=== PATIENT | female | born 1985 | race Caucasian/White ===

== ENCOUNTER → 2018-07-18 | Outpatient (CLI) | payer OTHER | LOC: OD 15:33 | PROVIDERS: ATTEND Nurse Practitioner Acute Care | DX: R30.0 Dysuria (principal) | CPT/HCPCS: 87086; 87088; 87186 ==

== ENCOUNTER 2019-11-19 15:38 | Outpatient (CLI) | payer OTHER ==
[2019-11-19] MEDS ORDERED: BETAMET ACET/BETAMET NA INJ 6 MG/1 ML IM ONE (15:52)
[2019-11-19] MEDS ORDERED: BETAMET ACET/BETAMET NA INJ 6 MG/1 ML ONE (16:12)
[2019-11-19] MEDS ORDERED: RINGERS SOLUTION,LACTATED 1,000 ML IV PRN (16:26)
[2019-11-19 16:42] LABS: APPEARANCE,URINE SLIGHTLY-CLOUDY; BILIRUBIN,URINE NEGATIVE (NEGATIVE); COLOR,URINE YELLOW; GLUCOSE, URINE NEGATIVE (NEGATIVE); KETONES,URINE NEGATIVE (NEGATIVE); LEUKOCYTE ESTERASE,URINE MODERATE (NEGATIVE); NITRITE,URINE NEGATIVE (NEGATIVE); PROTEIN,URINE NEGATIVE (NEGATIVE); URINE SPECIFIC GRAVITY 1.019; UROBILINOGEN,URINE NEGATIVE mg/dL (<2.0)
[2019-11-19 16:43] LABS: URINE AMPHETAMINES SCREEN NEGATIVE; URINE BARBITURATES SCREEN NEGATIVE; URINE BENZODIAZEPINES SCREEN NEGATIVE; URINE COCAINE SCREEN NEGATIVE; URINE MARIJUANA (THC) SCREEN NEGATIVE; URINE METHADONE SCREEN NEGATIVE; URINE PHENCYCLIDINE SCREEN NEGATIVE
== END 2019-11-19 18:14 | disposition home or self-care (01) ==
LOC: LC 15:38
PROVIDERS: ATTEND Obstetrics & Gynecology
DX: O47.02 False labor before 37 completed weeks of gestation, second trimester (principal); Z3A.27 27 weeks gestation of pregnancy
CPT/HCPCS: 59899; 81001; 80307; J0702; 96372

== ENCOUNTER → 2019-11-20 | Outpatient (CLI) | payer OTHER ==
[~2019-11-20] MED LIST: BETAMET ACET/BETAMET NA INJ 6 MG/1 ML IM ONE; BETAMET ACET/BETAMET NA INJ 6 MG/1 ML ONE
== END ==
LOC: LC 16:32
PROVIDERS: ATTEND Obstetrics & Gynecology
DX: Z34.82 Encounter for supervision of other normal pregnancy, second trimester (principal); Z3A.27 27 weeks gestation of pregnancy
CPT/HCPCS: 59899; 96372; J0702

== ENCOUNTER 2019-12-10 03:01 | Inpatient (IN) | payer OTHER ==
[2019-12-10] MEDS ORDERED: MAGNESIUM SULFATE 20 GM/500 ML RTUINJ IV ONE (03:09)
[2019-12-10] MEDS ORDERED: BETAMET ACET/BETAMET NA INJ 6 MG/1 ML ONE (03:09)
[2019-12-10] MEDS ORDERED: MAGNESIUM SULFATE 4 GM/100 ML RTUPB IV ONE ×2 (03:09→03:15)
[2019-12-10] MEDS ORDERED: BETAMET ACET/BETAMET NA INJ 6 MG/1 ML IM ONE (03:10)
[2019-12-10] MEDS ORDERED: MAGNESIUM SULFATE 20 GM/500 ML RTUINJ IV PRN (03:15)
[2019-12-10] MEDS ORDERED: AMPICILLIN SOD INJ 2 GM VIAL IV ONE (03:19)
[2019-12-10] MEDS ORDERED: AMPICILLIN SOD INJ 2 GM VIAL ONE (03:34)
[2019-12-10] MEDS ORDERED: AZITHROMYCIN INJ 500 MG VIAL IV ONE ×3 (03:34→05:52)
[2019-12-10] MEDS ORDERED: AMPICILLIN SOD INJ 2 GM VIAL IV PRN (03:35)
[2019-12-10] MEDS ORDERED: AMPICILLIN SODIUM 2 GM in NORMAL SALINE 100 ML IV ONE (03:45)
[2019-12-10] MEDS ORDERED: AZITHROMYCIN 500 MG in DEXTROSE 5%-WATER 250 ML IV ONE ×2 (04:00→07:00)
--- NOTE | 2019-12-10 04:33 | PDOC TRANSFER SUMMARY ---
General Admission Date: 12/10/19 Transfer Date: 12/10/19 Accepting Facility: [facility] Accepting Physician: Dr Perez Resuscitation Status: Full Code - Transfer Diagnosis (1) Twin gestation in third trimester Is this a current diagnosis for this admission?: Yes (2) Monochorionic diamniotic twin gestation Is this a current diagnosis for this admission?: Yes (3) Premature rupture of membranes Is this a current diagnosis for this admission?: Yes (4) Velamentous insertion of umbilical cord Is this a current diagnosis for this admission?: Yes (5) Prolonged latent phase of labor Is this a current diagnosis for this admission?: Yes - Transfer Medications Home Medications: Aspirin [Aspirin 81 mg Chewable Tablet] 1 tab PO BID 11/19/19 95/Iron Fum/Folic/Dha [ + Dha Combo Pack] 1 each PO DAILY 11/19/19 Transfer Medications: Current Medications Ampicillin Sodium (Omnipen Inj 2 Gm Vial) 2 gm IV ASDIR PRN Stop: 12/10/19 09:00 Magnesium Sulfate (Magnesium Sulfate Rtu 20 Gm/500 Ml Premix) 20 gm in 500 mls @ 50 mls/hr IV CONTINUOUS PRN; Protocol PRN Reason: THIS MED IS NOT "PRN" Stop: 01/09/20 03:14 Azithromycin 500 mg/ Dextrose 250 mls @ 250 mls/hr IV DAILY EDY Stop: 12/18/19 09:59 Azithromycin 500 mg/ Dextrose 250 mls @ 250 mls/hr IV NOW ONE Stop: 12/10/19 04:59 Ampicillin Sodium 2 gm/ Sodium (Chloride) 100 mls @ 200 mls/hr IV NOW ONE Stop: 12/10/19 04:14 - Allergies Allergies/Adverse Reactions: cefaclor [From Ceclor] Allergy (Severe, Verified 11/19/19 15:55) Anaphylaxis - Diet/Activity Discharge Diet: Clear Liquids Discharge Activity: Bedrest Hospital Course Hospital Course: patient presented to L&d with c/o premature rupture of membranes and irregular contractions. on exam her speculaum exam reveal gross amniotic fluid present in the vagina and a visible cervix dialation, thefore I did a digital exam to assess the amount of dilation and found it to be 4/75/-1 with vertex presentation and palpable bag on this twin. (suspect possibly the loss of fluid may be from a higher leak or from twin B) Immediaely began tocolysis with magnesium sulfate and antibiotic of Ampicillin and Zithromax started for latency. She had previously had full ACS protcol on Nov 20 therefore I have initiated a single rescue dose and contacted [facility] to start the transfer process with hopefully a flight. Transfer accepted by Dr. Bartlett at [facility]. We were notified after acceptance that the weather in [place] is poor so flight is not possible. They are sending an ambulance now to transport the patient. Physical Exam Vital Signs: Intake & Output 12/08/19 12/09/19 12/10/19 06:59 06:59 06:59 Weight 82.9 kg General appearance: PRESENT: no acute distress, cooperative Gentrourinary exam: PRESENT: other - gross clear amniotic fluid pouring from vagina. Cervix visually open therefore digital exam performed with above exam noted. Plan Discharge Plan: plan for transport fern to [facility] on tocolysis and antibiotic with rescue dose of steroids completed. Thank you Dr. Bartlett for accepting and helping in the care of this patient. Time Spent: Less than 30 Minutes
[2019-12-10 04:39] LABS: APPEARANCE,URINE CLOUDY; BILIRUBIN,URINE NEGATIVE (NEGATIVE); COLOR,URINE YELLOW; GLUCOSE, URINE 50 mg/dL (NEGATIVE); KETONES,URINE NEGATIVE (NEGATIVE); LEUKOCYTE ESTERASE,URINE NEGATIVE (NEGATIVE); NITRITE,URINE NEGATIVE (NEGATIVE); PROTEIN,URINE 100 mg/dL (NEGATIVE); URINE SPECIFIC GRAVITY 1.005; UROBILINOGEN,URINE NEGATIVE mg/dL (<2.0)
[2019-12-10 04:43] LABS: URINE AMPHETAMINES SCREEN NEGATIVE; URINE BARBITURATES SCREEN NEGATIVE; URINE BENZODIAZEPINES SCREEN NEGATIVE; URINE COCAINE SCREEN NEGATIVE; URINE MARIJUANA (THC) SCREEN NEGATIVE; URINE METHADONE SCREEN NEGATIVE; URINE PHENCYCLIDINE SCREEN NEGATIVE
[2019-12-10] MEDS ORDERED: RINGERS SOLUTION,LACTATED 1,000 ML IV PRN ×2 (05:25→07:11)
[2019-12-10] MEDS ORDERED: RINGERS SOLUTION,LACTATED 1,000 ML IV ONE (05:25)
[2019-12-10] MEDS ORDERED: AMPICILLIN SOD INJ 1 GM VIAL ONE (05:45)
[2019-12-10] MEDS ORDERED: CITRIC ACID/SODIUM CITRATE ORAL SOLN 15 ML UDCUP ONE (05:46)
--- NOTE | 2019-12-10 05:47 | Admission Physical ---
Datetime Report Generated by CPN: 12/10/2019 05:46 CURRENT ADMISSION Chief Complaint: Uterine Contractions; Suspected Ruptured Membranes Indication for Induction: Not Applicable Admit Impression : , Intrauterine ; Active Labor Admit Impression- Other: Di/Luquillo twins, velamatous cord insertion of twin b. Admit Plan: Admit to Unit; Initiate Section Protocol Admit Plan- Other: patient counseled and she does desire a c/section. Counseled that she could attempt a vaginal but she is more comfortable with the plan for c/section so we will proceed with that. She declines tubal ligation ALLERGIES Medication Allergies: Yes Medication Allergies: cefaclor/SV/Anaphylaxis (11/19/2019) Latex: No Latex Allergies Food Allergies: none Environmental Allergies: none OBSTETRICAL HISTORY EDC: 02/16/2020 00:00 : 2 Para: 0 Term: 0 : 0 SAB: 1 IAB: 0 Livin Gestational Diabetes: No Rh Sensitization: No Incompetent Cervix: No ROSEANN: No Infertility: No ART Treatment: No Uterine Anomaly: No IUGR: No Hx Previous C/S: No Macrosomia: No Hx Loss/Stillborn: No PIH: No Hx : No Placenta Previa/Abruption: No Depression/PP Depression: No PTL/PROM: No Post Hemorrhage: No Obstetrical History Comments: G1- SAB in 2019 G2- Current with twins SEE RECORDS Alcohol: No Marijuana : No Cocaine: No Other Illicit Drugs: No Cigarettes: Former Smoker. [id number] MEDICAL HISTORY Diabetes: No Blood Transfusion: No Pulmonary Disease (Asthma, TB): No Breast Disease: No Hypertension: No Wet Pour Supervisor Surgery: No Heart Disease: No Hosp/Surgery: Yes Autoimmune Disorder: No Anesthetic Complications: No Kidney Disease: No Abnormal Pap Smear: Yes Neuro/Epilepsy: No Psychiatric Disorders: No Other Medical Diseases: No Hepatitis/Liver Disease: No Significant Family History: No Varicosities/Phlebitis: No Trauma/Violence : No Thyroid Dysfunction: No Medical History Comments: wisdom teeth in 2017 and bunion in 2014. Leep in 2010 INFECTIOUS HISTORY Gonorrhea: No Chlamydia: No Tuberculosis: No Syphilis: No Hepatitis: No HIV/AIDS Exposure: No Rash or Viral Illness: No HPV: No PHYSICAL EXAM General: Normal HEENT: Normal Neurologic: Normal Thyroid: Normal Heart: Normal Lungs: Normal Breast: Normal Back: Normal Abdomen: Normal Genitourinary Exam: Normal Extremities: Normal DTRs: Normal Pelvic Type: Adequate Vital Signs: Reviewed; Within Normal Limits VAGINAL EXAM Dilatation: 8 Effacement: 90 Station: -1 MEMBRANES Pooling: Positive Membranes: Ruptured Amniotic Fluid Color: Clear FETUS A EGA: 30.2 Monitoring: External US FHR- Baseline: 140 Variability: Moderate 6-25bpm Accelerations: 10X10 Decelerations: None FHR Category: Category I Estimated Weight (gm): 2000 Presentation: Vertex FETUS B Monitoring: External US; Auscultation Variability: Moderate 6-25bpm Accelerations: 10X10 Decelerations: None FHR Category: Category I Estimated Weight (gm): 2000 Presentation: Transverse PLANS FOR LABOR AND DELIVERY Labor and Delivery: None Pain Management: Spinal Feeding Preference: Breast Benefit of Breast Feed Discussed: Yes Circumcision: N/A INFORMED CONSENT Signature: with User ID: [email or web address]
[2019-12-10] MEDS ORDERED: EPHEDRINE SULFATE INJ 50 MG/1 ML AMPULE ONE (05:51)
[2019-12-10] MEDS ORDERED: KETOROLAC TROMETHAMINE INJ/PF 30 MG/1 ML SDV ONE (05:51)
[2019-12-10] MEDS ORDERED: AMPICILLIN SOD INJ 1 GM VIAL IV ONE (05:51)
[2019-12-10] MEDS ORDERED: MIDAZOLAM 2 MG/2 ML INJ ONE (05:51)
[2019-12-10] MEDS ORDERED: ACETAMINOPHEN 1,000 MG/100 ML RTUPB IV ONE (05:51)
[2019-12-10] MEDS ORDERED: OXYTOCIN 10 UNIT/ML VIAL ONE (05:51)
[2019-12-10] MEDS ORDERED: FENTANYL CITRATE INJ/PF 100 MCG/2 ML AMPUL ONE (05:51)
[2019-12-10] MEDS ORDERED: OXYTOCIN/0.9 % SODIUM CHLORIDE 30 UNIT/500 ML RTUINJ ONE (05:51)
[2019-12-10] MEDS ORDERED: ONDANSETRON HCL INJ/PF 4 MG/2 ML SDV ONE (05:51)
[2019-12-10] MEDS ORDERED: MISOPROSTOL 0.2 MG TABLET ONE (05:54)
[2019-12-10] MEDS ORDERED: METHYLERGONOVINE MALEATE INJ/PF 0.2 MG/1 ML AMPULE ONE (05:54)
[2019-12-10 06:16] LABS: ABSOLUTE MONOCYTES (AUTO) 0.4 10^3/uL (0.1-1.4); ABSOLUTE NEUT (AUTO) 14.1 10^3/uL (1.7-8.2); BASOPHILS % (AUTO) 0.1 % (0-2); EOSINOPHILS % (AUTO) 0.2 % (0-6); HEMATOCRIT 31.5 % (36.0-47.0); HEMOGLOBIN 10.9 g/dL (12.0-15.5); LYMPHOCYTES % (AUTO) 6.7 % (13-45); MEAN CORPUSCULAR HGB CONC 34.5 g/dL (32.0-36.0); MEAN CORPUSCULAR VOLUME 87 fl (80-97); MONOCYTES % (AUTO) 2.3 % (3-13); PLATELET COUNT 295 10^3/uL (150-450); RED BLOOD COUNT 3.62 10^6/uL (3.72-5.28); SEGMENTED NEUTROPHILS % (AUTO) 90.7 % (42-78); TOTAL CELLS COUNTED % (AUTO) 100 %; WHITE BLOOD COUNT 15.6 10^3/uL (4.0-10.5)
[2019-12-10] MEDS ORDERED: AMPICILLIN SODIUM 1 GM in NORMAL SALINE 50 ML IV ONE (06:45)
[2019-12-10] MEDS ORDERED: MEASLES,MUMPS&RUBELLA VACC/PF 0.5 ML VIAL SUBCUT PRN (07:11)
[2019-12-10] MEDS ORDERED: MORPHINE SULFATE 10 MG/ML INJ IV PRN (07:11)
[2019-12-10] MEDS ORDERED: DIPH/PERTUSS(ACELL)/TETANUS VAC/PF 0.5 ML SYR (>=10YO) IM PRN (07:11)
[2019-12-10] MEDS ORDERED: ACETAMINOPHEN 100 ML IV PRN (07:11)
[2019-12-10] MEDS ORDERED: SIMETHICONE 80 MG TAB.CHEW PO PRN (07:11)
[2019-12-10] MEDS ORDERED: PROMETHAZINE HCL INJ 25 MG/1 ML VIAL IV PRN (07:11)
[2019-12-10] MEDS ORDERED: OXYCODONE-ACETAMINOPHEN 5-325 MG TABLET PO PRN (07:11)
[2019-12-10] MEDS ORDERED: ACETAMINOPHEN 325 MG TABLET PO PRN (07:11)
[2019-12-10] MEDS ORDERED: OXYTOCIN/0.9 % SODIUM CHLORIDE 30 UNIT/500 ML RTUINJ IV PRN (07:11)
--- NOTE | 2019-12-10 07:18 | Operative Report ---
Operative Report DATE OF SURGERY: 12/10/19 PREOPERATIVE DIAGNOSIS: IUP at 30 weeks and 2 days, mono di-twin gestation, pre mature rupture of membranes, active labor POSTOPERATIVE DIAGNOSIS: Same OPERATION: Primary low transverse hysterotomy section SURGEON: ANJALI KHAN ANESTHESIA: Spinal TISSUE REMOVED OR ALTERED: Placentas COMPLICATIONS: None ESTIMATED BLOOD LOSS: 850 cc INTRAOPERATIVE FINDINGS: female cephalic presentation baby A, female infant transverse presentation baby B, normal uterus tubes and ovaries PROCEDURE: PROCEDURE IN DETAIL: The patient was taken to the operating room, prepared and draped in a normal sterile fashion in a supine position with a leftward tilt. A transverse skin incision was made with a scalpel and carried through to the underlying layer of fascia with the same scalpel. The fascia was excised in the midline and extended laterally with Deena. The fascia was then dissected from the rectus muscle sharply with Deena and the rectus muscle was divided and the peritoneal cavity was entered sharply with the same Metzenbaum. With good visualization of the bladder and the uterus the bladder blade was inserted. The hysterotomy was nicked with a scalpel and extended laterally with surgeon finger fraction. The was then delivered atraumatically. The nose and mouth were suctioned with a suction bulb, the cord was clamped and cut and handed off to awaiting pediatricians. Cord blood was collected. Amniotomy was performed on baby B's amniotic sac . The feet were grasped and the baby was converted from transverse to footling breech . The nose and mouth were suctioned with a suction bulb cord was clamped and cut and the was heading off to the other waiting pediatricians. the placentas were removed manually. The uterus was exteriorized and cleared of clots and debris. The hysterotomy was closed with 0 Monocryl in a running, locked fashion. A second layer of the same suture was used to imbricate to ensure hemostasis. The uterus was returned to the abdomen and peritoneal cavity was cleared of clots and debris. The rectus muscle and peritoneum were repaired with mattress stitch of 2-0 Chromic. The fascia was closed with 0-Vicryl. The subcutaneous layer was closed with plain catgut and the skin was closed with 4-0 Vicryl. The patient tolerated the procedure well. Sponge, lap, and needle counts correct x2 and the patient was taken to recovery in stable condition.
[2019-12-10] MEDS ORDERED: MEPERIDINE HCL/PF INJ 25 MG/1 ML DISP.SYRIN ONE (07:50)
[2019-12-10] MEDS ORDERED: DIPHENHYDRAMINE HCL 50 MG/ML VIAL ONE (08:09)
[2019-12-10] MEDS ORDERED: PRENATAL VITAMIN W DHA CAPSULE PO SCH (10:00)
--- NOTE | 2019-12-10 10:03 | Birth Certificate Data ---
Cert Data Datetime Report Generated by CPN: 12/10/2019 10:02 CERTIFICATE DATA 48b. Now Livin (11/19/2019 15:47:May GLENN Servin) RISK FACTORS IN THIS 49a. Diabetes: No (11/19/2019 15:47:Carlotta Coffey RN) 49b. Hypertension: No (11/19/2019 15:47:Carlotta Coffey RN) 49c. Previous Births: 0 (11/19/2019 15:47:Raisa Servin RN) 49d. Stillborns: No (11/19/2019 15:47:Carlotta Coffey RN) 49d. IUGR: No (11/19/2019 15:47:Carlotta Coffey RN) 49e. Infertility Treatment: No (11/19/2019 15:47:Carlotta Coffey RN) Mother's Height 50b. Height Inches: 58 (12/10/2019 09:29:QS system process) Mother's Weight 51a. Pre- Weight (lbs): 135 (11/19/2019 15:47:Carlotta Coffey RN) 51b. Weight at Delivery (lbs): 183 (12/10/2019 09:29:QS system process) Infections Present/Treated 53a. Gonorrhea: No (11/19/2019 15:47:Carlotta Coffey RN) Results this Hospital Visit : Negative (11/19/2019 15:47:Carlotta Coffey RN) 53b. Syphilis: No (11/19/2019 15:47:Carlotta Coffey RN) Results this Hospital Visit: NONREACTIVE (12/10/2019 06:08:QS system process) 53c. Chlamydia: No (11/19/2019 15:47:Carlotta oCffey RN) Results this Hospital Visit: Negative (11/19/2019 15:47:Carlotta Coffey RN) 53d. Hepatitis B: No (11/19/2019 15:47:Carlotta Coffey RN) Results this Hospital Visit: Negative (11/19/2019 15:47:Carlotta Coffey RN) 53e. Hepatitis C: Negative (11/19/2019 15:47:Carlotta Coffey RN) 53h. Mother Tested for HBsAG: Yes (11/19/2019 15:47:Carlotta Coffey RN) 53i. Date Tested: 07/16/2019 00:00 (11/19/2019 15:47:Carlotta Coffey RN) 53j. Test Result: Negative (11/19/2019 15:47:Carlotta Coffey RN) Cigarette Smoking Cigarette Smoking: Former Smoker. [id number] (11/19/2019 15:47:Carlotta Coffey RN) 55a. 3 Months Before Preg - Ci (11/19/2019 15:47:Carlotta Coffey RN) 55a. Packs: 0 (11/19/2019 15:47:Carlotta Coffey RN) 55b. 1st Trimester of Preg- Ci (11/19/2019 15:47:Carlotta Coffey RN) 55b. Packs: 0 (11/19/2019 15:47:Carlotta Coffey RN) 55c. 2nd Trimester of Preg- Ci (11/19/2019 15:47:Carlotta Coffey RN) 55c. Packs: 0 (11/19/2019 15:47:Carlotta Coffey RN) 55d. 3rd Trimester of Preg- Ci (11/19/2019 15:47:Carlotta Coffey RN) 55d. Packs: 0 (11/19/2019 15:47:Carlotta Coffey RN) Onset of Labor 56a. PROM >12 Hrs: 4.70 (12/10/2019 05:30:QS system process) 56b. Precipitous Labor <3 Hrs: 4 (11/19/2019 15:47:QS system process) 56c. Prolonged Labor > 20 Hrs: 4 (11/19/2019 15:47:QS system process) 57a. Induction of Labor: N/A (11/19/2019 15:47:Almaz Johns RN) 57c. Non-Vertex Presentation A: Vertex (11/19/2019 15:47:Almaz Johns RN) 57d. Steroids - Lung Mat: Full Course (11/19/2019 15:47:Almaz Johns RN) 57d. Steroids - Lung Mat: Celestone 12mg IM - Dose 1 (12/10/2019 03:30:Carlotta Coffey RN) 57d. Steroids - Lung Mat: Not Applicable (11/19/2019 15:47:Almaz Johns RN) 57f. Mat Ch[place] or Temp >100.4: 97.6 (11/19/2019 15:47:Carlotta Coffey RN) 57g. Moderate/Heavy Meconium: Clear (12/10/2019 05:30:Carlotta Coffey RN) 57h. Intolerance of Labor: Multiple Gestation (11/19/2019 15:47:Almaz Johns RN) 57i. Epidural/Spinal Anesthesia: None (11/19/2019 15:47:Almaz Johns RN) Method of Delivery 58a. Forceps - Unsuccessful A: N/A (11/19/2019 15:47:Almaz Johns RN) 58a. Forceps - Unsuccessful B: N/A (11/19/2019 15:47:Almaz Johns RN) 58b. Vacuum - Unsuccessful A: N/A (11/19/2019 15:47:Almaz Jonhs RN) 58b. Vacuum - Unsuccessful B : N/A (11/19/2019 15:47:Almaz Johns RN) 58c. Presentation at 58c. Presentation at - A : Vertex (11/19/2019 15:47:Almaz Johns RN) 58c. Presentation at - A : N/A (11/19/2019 15:47:Almaz Johns RN) 58c. Presentation at - A : Cephalic (11/19/2019 15:47:Almaz Johns RN) 58c. Presentation at - B : Rufus (11/19/2019 15:47:Almaz Johns RN) 58c. Presentation at - B: Breech (11/19/2019 15:47:Almaz Johns RN) Final Route and Method of Del 58d. Baby A Route/Delivery: (11/19/2019 15:47:Almaz Johns RN) 58d. Baby B Route/Delivery: (11/19/2019 15:47:Almaz Johns RN) 58e. Trial of Labor Attempted: No (11/19/2019 15:47:Almaz Johns RN) 58e. Trial of Labor Attempted A: N/A (11/19/2019 15:47:Almaz Johns RN) 58e. Trial of Labor Attempted B: N/A (11/19/2019 15:47:Almaz Johns RN) Maternal Morbidity 59b. 3rd or 4th Degree Lacs: None (11/19/2019 15:47:Almaz Johns RN) Birthweight Baby A: 1367 (11/19/2019 15:47:Ana Noland RN) 60a. Pounds : 3 (11/19/2019 15:47:QS system process) 60b. Ounces: 0 (11/19/2019 15:47:QS system process) Birthweight Baby B 60a. Pounds: 2 (11/19/2019 15:47:QS system process) 60b. Ounces: 12 (11/19/2019 15:47:QS system process) 61. GA at Delivery Baby A: 30.2 (11/19/2019 15:47:Almaz Johns RN) : - <34 Weeks (11/19/2019 15:47:QS system process) Baby B: 30.2 (11/19/2019 15:47:Almaz Johns RN) : - <34 Weeks (11/19/2019 15:47:QS system process) 62a. 5 Minute Baby A: 9 (11/19/2019 15:47:QS system process) Baby B: 9 (11/19/2019 15:47:QS system process)
--- NOTE | 2019-12-10 10:03 | Delivery Summary ---
Del Sum A-C Datetime Report Generated by CPN: 12/10/2019 10:02 DELIVERY PERSONNEL DELIVERY PERSONNEL: [id number] Delivery Doctor:: Ruba Stevens MD INTEGRATED MARKETING SPECIALIST:: Jose Leslie CRNA Balance Staff Inspector:: Carlotta Coffey RN Neonatal Nurse Practitioner:: Juan GarciaDULCE MARIA delgado Ladies' Locker Room Attendant/BOTTLE HOP: Yamileth Vargas, Ladies' Locker Room Attendant/BOTTLE HOP: Mireille Rey, ST MATERNAL INFORMATION Delivery Anesthesia: Spinal Medications After Delivery: Pitocin 30 Units in 500ml NS/D5W Delivery QBL: 1010 Maternal Complications: Premature Rupture of Membranes LABOR SUMMARY EDC: 02/16/2020 00:00 No. Babies in Womb: 2 Attempted: No Labor Anesthesia: None LABOR INFORMATION Reason for Induction: Not Applicable Onset of Labor: 12/10/2019 02:00 Oxytocin: N/A Group B Beta Strep: Unknown Name of Antibiotic Given: n/a Steroids Given: Full Course Reason Steroids Not Administered: Not Applicable MEMBRANES Membranes Rupture Method: Spontaneous Rupture of Membranes: 12/10/2019 02:00 Length of Rupture (hr): 4.70 Amniotic Fluid Color: Clear Amniotic Fluid Amount: Large Amniotic Fluid Odor: Normal STAGES OF LABOR Stage 3 hr: 0 Stage 3 min: 3 Total Time in Labor hr: 4 Total Time in Labor min: 45 VAGINAL DELIVERY Episiotomy: None Laceration #1: None Laceration Extension #1: N/A Laceration Repair: Not Applicable Sponge Count Correct: N/A Sharps Count Correct: N/A CSECTION DELIVERY Primary Indication: Multiple Gestation CSection Urgency: Non-Scheduled CSection Incidence: Primary Labor: Labor Elective: Elective CSection Incision: Lower Uterine Transverse BABY A INFORMATION Delivery Date/Time: 12/10/2019 06:42 Method of Delivery: Nurse Controlled Delivery: No Born in Route : No : N/A Forceps: N/A Vacuum Extraction: N/A Shoulder Dystocia : No PRESENTATION/POSITION BABY A Presentation: Cephalic Cephalic Presentation: Vertex Breech Presentation: N/A PLACENTA INFORMATION BABY A Placenta Delivery Time : 12/10/2019 06:45 Placenta Method of Delivery: Manual Removal Placenta Status: Delivered SCORES BABY A Heart Rate 1 min: >100 bpm Resp Effort 1 min: Good Cry Reflex Irritability 1 min: Cough or Sneeze or Pulls Away Muscle Tone 1 min: Active Motion Color 1 min: Blue/Pale Resuscitation Effort 1 min: Tactile Stimulation; Oxygen; PPV/NCPAP SCORE 1 MIN: 8 Heart Rate 5 min: >100 bpm Resp Effort 5 min: Good Cry Reflex Irritability 5 min: Cough or Sneeze or Pulls Away Muscle Tone 5 min: Active Motion Color 5 min: Body [place], Extremities Blue Resuscitation Effort 5 min: Tactile Stimulation; Oxygen; PPV/NCPAP SCORE 5 MIN: 9 INFANT INFORMATION BABY A Gestational Age at Delivery: 30.2 Gestational Status: - <34 Weeks Outcome : Liveborn Condition : Stable Sex: Female IDENTIFICATION BABY A Infant Verification Date/Time: 12/10/2019 07:20 ID Band Number: [id number] Mother's Name Verified: Yes RN Verifying Infant: Nadine Coffey, RN Additional Verifying Personnel: T Adolfo, RN WEIGHT/LENGTH BABY A Infant Birthweight (gm): 1367 Weight (lb): 3 Infant Weight (oz): 0 Infant Length (in): 16.50 Infant Length (cm): 41.91 CORD INFORMATION BABY A No. Cord Vessels: 3 Cord Blood Taken: Yes-For Eval (Mom's Blood Type - or O+) Infant Suction: Mouth; Nose BABY B INFORMATION Infant Delivery Date/Time: 12/10/2019 06:43 Method of Delivery : Nurse Controlled Delivery: No Born in Route : No : N/A Forceps : N/A Vacuum Extraction: N/A Shoulder Dystocia : No SHOULDER DYSTOCIA BABY B Delivery Date/Time: 12/10/2019 06:43 PRESENTATION/POSITION BABY B Presentation : Breech Breech Position: Rufus ROM/PLACENTA INFO BABY B Rupture of Membranes: 12/10/2019 06:43 Length of Rupture (hr): 0.00 Placenta Delivery Time : 12/10/2019 06:45 Placenta Method of Delivery: Manual Removal Placental Status : Delivered SCORES BABY B Heart Rate 1 min: >100 bpm Resp Effort 1 min: Good Cry Reflex Irritability 1 min: Cough or Sneeze or Pulls Away Muscle Tone 1 min: Active Motion Color 1 min: Body [place], Extremities Blue SCORE 1 MIN: 9 Heart Rate 5 min: >100 bpm Resp Effort 5 min: Good Cry Reflex Irritability 5 min: Cough or Sneeze or Pulls Away Muscle Tone 5 min: Active Motion Color 5 min: Body [place], Extremities Blue SCORE 5 MIN: 9 INFANT INFORMATION BABY B Gestational Age at Delivery: 30.2 Gestational Status : - <34 Weeks Infant Outcome : Liveborn Infant Condition : Stable Sex : Female IDENTIFICATION BABY B Verification Date/Time: 12/10/2019 07:20 ID Band Number : [id number] Mother's Name Verified: Yes RN Verifying : K Alexx, RN Additional Verifying Personnel: T Adolfo, RN WEIGHT/LENGTH BABY B Birthweight (gm): 1238 Weight (lb) : 2 Weight (oz): 12 Infant Length (in): 14.00 Infant Length (cm): 35.56 CORD INFORMATION BABY B No. Cord Vessels : 3 Nuchal Cord : Around Neck x1, Tight Cord Blood Taken : Yes-For Eval (Mom's Blood Type -)
[2019-12-10] MEDS: OXYCODONE-ACETAMINOPHEN 5-325 MG TABLET PO PRN ×2 (10:05→15:16)
[2019-12-10] MEDS: DOCUSATE SODIUM 100 MG CAPSULE PO SCH ×2 (10:11→18:01)
[2019-12-10] MEDS: KETOROLAC TROMETHAMINE INJ/PF 30 MG/1 ML SDV IV SCH ×2 (13:24→22:03)
[2019-12-10] MEDS: IBUPROFEN 800 MG TABLET PO SCH (20:57)
[2019-12-11] MEDS: IBUPROFEN 800 MG TABLET PO SCH ×2 (06:55→06:56)
[2019-12-11 07:30] LABS: HEMATOCRIT 25.6 % (36.0-47.0); MEAN CORPUSCULAR HEMOGLOBIN 30.8 pg (27.0-33.4); MEAN CORPUSCULAR HGB CONC 35.3 g/dL (32.0-36.0); MEAN CORPUSCULAR VOLUME 87 fl (80-97); PLATELET COUNT 300 10^3/uL (150-450); RED BLOOD COUNT 2.93 10^6/uL (3.72-5.28); RED CELL DISTRIBUTION WIDTH 13.3 % (11.5-14.0); WHITE BLOOD COUNT 13.1 10^3/uL (4.0-10.5)
--- NOTE | 2019-12-11 09:51 | PDOC DISCHARGE SUMMARY ---
Impression - Admit/DC Date/PCP Admission Date/Primary Care Provider: 12/10/19 05:18 Discharge Date: 12/11/19 - Discharge Diagnosis (1) delivery Is this a current diagnosis for this admission?: Yes (2) Monochorionic diamniotic twin gestation Is this a current diagnosis for this admission?: Yes (3) Premature rupture of membranes Is this a current diagnosis for this admission?: Yes (4) Prolonged latent phase of labor Is this a current diagnosis for this admission?: Yes (5) Twin gestation in third trimester Is this a current diagnosis for this admission?: Yes (6) Velamentous insertion of umbilical cord Is this a current diagnosis for this admission?: Yes (7) Active labor Is this a current diagnosis for this admission?: Yes - Additional Information Resuscitation Status: Full Code Discharge Diet: Regular Discharge Activity: Balance Activity w/Rest, No Lifting Over 10 Pounds, No Lifting/Push/Pulling, Pelvic Rest, No tub bath Prescriptions: Oxycodone HCl/Acetaminophen [Percocet 5-325 mg Tablet] 1 tab PO Q4HP PRN #30 t ablet PRN Reason: For Pain Scale 3-5 Ibuprofen [Motrin 800 mg Tablet] 800 mg PO Q8HP PRN #60 tablet PRN Reason: Home Medications: 95/Iron Fum/Folic/Dha [ + Dha Combo Pack] 1 each PO DAILY 11/19/19 Ibuprofen [Motrin 800 mg Tablet] 800 mg PO Q8HP PRN #60 tablet 12/11/19 Oxycodone HCl/Acetaminophen [Percocet 5-325 mg Tablet] 1 tab PO Q4HP PRN #30 tablet 12/11/19 HPI Gestational Age: 30.2 Reason(s) for Admission: Onset of Labor, PROM, Labor, Twins Procedures: NST, Management of Obstetric Complications Intrapartum Procedure(s): : Low Cervical, Transverse Hospital Course 59. Maternal Morbidity (serious complications experinced by the mother associated with labor and delivery: None of the above Results Laboratory Results: WBC 13.1 10^3/uL (4.0-10.5) H 12/11/19 06:59 RBC 2.93 10^6/uL (3.72-5.28) L 12/11/19 06:59 Hgb 9.0 g/dL (12.0-15.5) L 12/11/19 06:59 Hct 25.6 % (36.0-47.0) L 12/11/19 06:59 MCV 87 fl (80-97) 12/11/19 06:59 MCH 30.8 pg (27.0-33.4) 12/11/19 06:59 MCHC 35.3 g/dL (32.0-36.0) 12/11/19 06:59 RDW 13.3 % (11.5-14.0) 12/11/19 06:59 Plt Count 300 10^3/uL (150-450) 12/11/19 06:59 Lymph % (Auto) 6.7 % (13-45) L 12/10/19 06:08 [place] % (Auto) 2.3 % (3-13) L 12/10/19 06:08 Eos % (Auto) 0.2 % (0-6) 12/10/19 06:08 Baso % (Auto) 0.1 % (0-2) 12/10/19 06:08 Absolute Neuts (auto) 14.1 10^3/uL (1.7-8.2) H 12/10/19 06:08 Absolute Lymphs (auto) 1.0 10^3/uL (0.5-4.7) 12/10/19 06:08 Absolute Monos (auto) 0.4 10^3/uL (0.1-1.4) 12/10/19 06:08 Absolute Eos (auto) 0.0 10^3/uL (0.0-0.6) 12/10/19 06:08 Absolute Basos (auto) 0.0 10^3/uL (0.0-0.2) 12/10/19 06:08 Seg Neutrophils % 90.7 % (42-78) H 12/10/19 06:08 Urine Color YELLOW 12/10/19 03:10 Urine Appearance CLOUDY 12/10/19 03:10 Urine pH 8.0 (5.0-9.0) 12/10/19 03:10 Ur Specific [place] 1.005 12/10/19 03:10 Urine Protein 100 mg/dL (NEGATIVE) H 12/10/19 03:10 Urine Glucose (UA) 50 mg/dL (NEGATIVE) H 12/10/19 03:10 Urine Ketones NEGATIVE mg/dL (NEGATIVE) 12/10/19 03:10 Urine Blood MODERATE (NEGATIVE) H 12/10/19 03:10 Urine Nitrite NEGATIVE (NEGATIVE) 12/10/19 03:10 Urine Bilirubin NEGATIVE (NEGATIVE) 12/10/19 03:10 Urine Urobilinogen NEGATIVE mg/dL (<2.0) 12/10/19 03:10 Ur Leukocyte Esterase NEGATIVE (NEGATIVE) 12/10/19 03:10 Urine WBC (Auto) 8 /HPF 12/10/19 03:10 Urine RBC (Auto) 9 /HPF 12/10/19 03:10 Urine Bacteria (Auto) TRACE /HPF 12/10/19 03:10 Squamous Epi Cells Auto 29 /HPF 12/10/19 03:10 Urine Yeast (Budding) PRESENT /HPF 12/10/19 03:10 Urine Ascorbic Acid NEGATIVE (NEGATIVE) 12/10/19 03:10 Urine Opiates Screen NEGATIVE 12/10/19 03:10 Urine Methadone Screen NEGATIVE 12/10/19 03:10 Ur Barbiturates Screen NEGATIVE 12/10/19 03:10 Ur Phencyclidine Scrn NEGATIVE 12/10/19 03:10 Ur Amphetamines Screen NEGATIVE 12/10/19 03:10 U Benzodiazepines Scrn NEGATIVE 12/10/19 03:10 Urine Cocaine Screen NEGATIVE 12/10/19 03:10 U Marijuana (THC) Screen NEGATIVE 12/10/19 03:10 RPR NONREACTIVE (NONREACTIVE) 12/10/19 06:08 COVID-19 Source See comment 12/10/19 07:34 COVID-19 (ESTELLA) Not Detected (Not Detect) 12/10/19 07:34 Blood Type O POSITIVE 12/10/19 06:08 Antibody Screen NEGATIVE 12/10/19 06:08 Plan Plan of Treatment: f/u at [facility] 1 wk for incision check Time Spent: Less than 30 Minutes
[2019-12-11] MEDS ORDERED: AZITHROMYCIN 500 MG in DEXTROSE 5%-WATER 250 ML IV SCH (10:00)
[2019-12-11 10:01] VITALS: BP 120/68
--- NOTE | 2019-12-11 10:03 | PDOC PROGRESS REPORT ---
Subjective-OB Progress Note for:: 12/11/19 Subjective: Pt is doing well, she would like to be discharged so that she can go see her babies in [place]. She reports reg diet, voiding w/o difficulty, +flatus and light bleeding. She is ambulatory and without concerns. Would like rx for breast pump. Physical Exam (OB) Vital Signs: Temp Pulse Resp BP Pulse Ox 97.9 F 71 17 111/58 L 100 12/11/19 08:44 12/11/19 07:51 12/11/19 07:51 12/11/19 07:51 12/11/19 07:51 Intake & Output 12/10/19 12/11/19 12/12/19 06:59 06:59 06:59 Intake Total 936 120 Output Total 2850 Balance -1914 120 Weight 82.9 kg - Dressing Removed: No Incision: Dressing Closure Type: Surgical Glue Note: occlusive OPSITE - Maternal Morbidity 59. Maternal Morbidity (serious complications experinced by the mother associated with labor and delivery: None of the above - Lochia Lochia Amount: Scant < 10 ml Lochia Color: Rubra/Red - Abdomen Description: Soft Hernia Present: No Fundal Description: Firm, Midline Fundal Height: u/u - u/2 Objective-Diagnostic Laboratory: 12/11/19 06:59 12/11/19 06:59 WBC 13.1 H RBC 2.93 L Hgb 9.0 L Hct 25.6 L MCV 87 MCH 30.8 MCHC 35.3 RDW 13.3 Plt Count 300 Assessment and Plan(PN) - Assessment and Plan (1) delivery Is this a current diagnosis for this admission?: Yes (2) Monochorionic diamniotic twin gestation Qualifiers: Trimester: third trimester Qualified Code(s): O30.033 - Twin , monochorionic/diamniotic, third trimester Is this a current diagnosis for this admission?: Yes (3) Premature rupture of membranes Qualifiers: PROM onset of labor timing: onset of labor within 24 hours of rupture PROM gestational age: -third trimester Qualified Code(s): O42.013 - premature rupture of membranes, onset of labor within 24 hours of rupture, third trimester Is this a current diagnosis for this admission?: Yes (4) Prolonged latent phase of labor Is this a current diagnosis for this admission?: Yes (5) Twin gestation in third trimester Qualifiers: Multiple gestation type: monochorionic and diamniotic Qualified Code(s): O30.033 - Twin , monochorionic/diamniotic, third trimester Is this a current diagnosis for this admission?: Yes (6) Velamentous insertion of umbilical cord Qualifiers: Trimester: third trimester Qualified Code(s): O43.123 - Velamentous insertion of umbilical cord, third trimester Is this a current diagnosis for this admission?: Yes (7) Active labor Qualifiers: Fetus number: fetus 1 of multiple gestation Qualified Code(s): O60.10X1 - labor with delivery, unspecified trimester, fetus 1 Is this a current diagnosis for this admission?: Yes - Time Spent with Patient Time with patient: Less than 15 minutes Medications reviewed and adjusted accordingly: Yes - Disposition Anticipated Discharge Disposition: Home, Self Care Anticipated Discharge Timeframe: within 24 hours
== END 2019-12-11 13:25 | disposition home or self-care (01) | DRG 787 ==
LOC: LC 03:01 → LR 05:18 → 2N 09:29
PROVIDERS: ADMIT Obstetrics & Gynecology; ATTEND Obstetrics & Gynecology
PROC: 10D00Z1 Extraction of Products of Conception, Low, Open Approach (ICD-10-PCS; principal; 2019-12-10)
DX: O60.14X2 Preterm labor third trimester with preterm delivery third trimester, fetus 2 (principal); O63.9 Long labor, unspecified; O66.9 Obstructed labor, unspecified; O32.1XX2 Maternal care for breech presentation, fetus 2; O69.1XX2 Labor and delivery complicated by cord around neck, with compression, fetus 2; O43.123 Velamentous insertion of umbilical cord, third trimester; O30.033 Twin pregnancy, monochorionic/diamniotic, third trimester; O42.013 Preterm premature rupture of membranes, onset of labor within 24 hours of rupture, third trimester; Z3A.30 30 weeks gestation of pregnancy; Z37.2 Twins, both liveborn; Z88.1 Allergy status to other antibiotic agents; Z11.59 Encounter for screening for other viral diseases
CPT/HCPCS: 1961; 36415; 80307; 81001; 85025; 85027; 86592; 86850; 86900; 86901; 87635; 88307; 94760; 94799; 99140; C9803; J0131; J0290; J0456; J0702; J1200; J1885; J2175; J2210; J2250; J2405; J2590; J3010; J3475; J3490; J7050; J7060; J7120